=== PATIENT | female | born 1995 | race Caucasian/White ===

== ENCOUNTER 2019-11-12 06:54 | Inpatient (IN) | payer OTHER ==
[2019-11-12] VITALS (39 sets, daily range): BP systolic 92–163; BP diastolic 50–123; PULSE 63–587; TEMP 97.5–98.4
[~2019-11-12] VITALS: Ht 175.3 cm; Wt 107.7 kg
--- NOTE | 2019-11-12 07:00 | NUR ---
Patient arrives ambulatory with spouse for scheduled induction of labor. Patient denies contractions, ROM or vaginal bleeding and reports normal movement. Patient changes into gown, EFM explained and placed. VS obtained. Plan of care for induction reviewed, patient agrees and denies questions. 0715- IV started in RH, labs obtained and LR infusing per protocol. Assessment completed, consents explained and signed. Patient denies questions. 0740- Reactive Category 1 FHR strip obtained. Discussing with patient Pitocin administration, patient denies questions. Pitocin started at 2 mU per protocol and order.
[2019-11-12] MEDS ORDERED: PRENATAL (07:24)
[2019-11-12] MEDS ORDERED: ZOVIRAX400 MG PO (07:25)
--- NOTE | 2019-11-12 08:00 | NUR ---
Dr. Singh on unit, reviews FHR strip since admission. 0805- Physician at bedside. Vertex presentation confirmed via bedside sono by physician. Discussing AROM, patient agrees. 0808- SVE per provider . AROM by Dr. Singh for moderate amount of clear fluid. Pericare given and patient repositioned WL. Updated on plan of care. 0815- Physician reviews FHR strip. Orders to continue Pitocin induction.
[2019-11-12 08:08] LABS: BASO % 0.3 % (0.0-2.0); EOS # 0.1 (0.0-0.7); EOS % 1.1 % (0-4.0); GRAN # 6.3 (1.4-6.5); GRAN % 68.7 % (42.2-75.2); LYMPH # 1.9 (1.2-3.4); LYMPH % 20.5 % (20.0-51.0); MEAN CELL VOLUME 93 fl (80.0-100.0); MEAN CORPUSCULAR HEMOGLOBIN 31 pg (27.0-31.0); MEAN CORPUSCULAR HGB CONC 33 g/dl (33.0-37.0); MEAN PLATELET VOLUME 11.3 fl (7.4-10.4); MONO # 0.7 (0.1-0.6); MONO % 7.8 % (1.7-9.3); PLATELET COUNT 227 K/mm3 (130-400); RED BLOOD COUNT 3.61 M/mm3 (4.10-5.30); REDCELL DISTRIBUTION WIDTH-CV 13.5 % (11.5-14.5)
[2019-11-12 08:22] LABS: HEMATOCRIT 33.4 % (37.0-47.0)
[2019-11-12 08:26] LABS: TRICYCLIC ANTIDEPRESS URINE NEGATIVE
--- NOTE | 2019-11-12 12:40 | NUR ---
Dr. Singh at bedside. Reviews FHR strip. SVE per provider /3. Orders to hold Pitocin at 20mU unless contractions space out. No further orders at this time.
--- NOTE | 2019-11-12 14:00 | NUR ---
1400- Patient very uncomfortable with contractions and requesting epidural. Daniella Desai CRNA notified and LR bolus infusing. 1410- Patient sitting on edge of bed for epidural placement. Daniella Desai CRNA at bedside. 1422- Epidural test dose by Daniella Desai CRNA, patient tolerates well, no adverse reactions noted. See anesthesia record. 1428- Patient repositioned WL following epidural. Updated on plan of care and safety.
--- NOTE | 2019-11-12 15:45 | NUR ---
Recurrent variable decelerations noted, SVE AL/+1. Dr. Singh notified and requested on unit. In transit. RN remains at bedside. Patient to LL position.
--- NOTE | 2019-11-12 15:55 | NUR ---
1555- Dr. Singh at bedside. SVE per provider 2. Patient does not report urge to push, patient's on his way back to hospital. Decision made to wait to begin pushing until arrives unless patient feels need. Physician remains on unit, RN remains at bedside. Mejia catheter removed, pericare given.
--- NOTE | 2019-11-12 16:18 | NUR ---
1618- Patient's at bedside. Physician at bedside, nursery RN to bedside. Patient assisted to footplates, periprep completed. 1625- Patient begins pushing with contractions. Moves vertex well. 1627- of viable female infant attended by Dr. Singh. Infant to mother's abdomen, then to warmer for assessment. Care of to Antonette Orozco RN, Apgars 8/9/9. 1630- Spontaneous delivery of placenta. Pitocin bolus started at 333ml/hr/protocol. Fundal massage by RN, firm and one below umbilicus. Vaginal bleeding WNL. Perienum intact. Pericare given and ice pack applied. Patient updated on plan of care, safety reviewed. Call light in reach.
[2019-11-13 01:50] VITALS: BP 106/76; PULSE 79; TEMP 98.2
[2019-11-13 04:15] VITALS: BP 100/67; PULSE 80; TEMP 97.9
[2019-11-13 07:24] LABS: HEMOGLOBIN 11.1 g/dl (12.5-16.0)
[2019-11-13 07:25] LABS: HEMATOCRIT 33.7 % (37.0-47.0)
[2019-11-13 07:30] VITALS: BP 98/51; PULSE 80; TEMP 98.5
[2019-11-13] MEDS ORDERED: PERCOCET 325 MG1 TA2 PO (08:30)
[2019-11-13] MEDS ORDERED: IBU600 MG PO (08:30)
[2019-11-13 16:48] VITALS: BP 123/75; PULSE 78; TEMP 97.8
--- NOTE | 2019-11-16 10:08 | NUR ---
Patient's infant's cord blood was negative for illegal drugs in system.
== END 2019-11-13 19:00 | disposition home or self-care (01) | DRG 806 ==
LOC: OB 06:54 → LDR 06:54 → OB 10:04
PROVIDERS: ADMIT Obstetrics & Gynecology
PROC: 10E0XZZ Delivery of Products of Conception, External Approach (ICD-10-PCS; principal; 2019-11-12)
PROC: 10907ZC Drainage of Amniotic Fluid, Therapeutic from Products of Conception, Via Natural or Artificial Opening (ICD-10-PCS; 2019-11-12)
DX: O99.02 Anemia complicating childbirth (principal); O98.52 Other viral diseases complicating childbirth; Z37.0 Single live birth; O99.334 Smoking (tobacco) complicating childbirth; F17.210 Nicotine dependence, cigarettes, uncomplicated; D64.9 Anemia, unspecified; Z3A.39 39 weeks gestation of pregnancy; O69.81X0 Labor and delivery complicated by cord around neck, without compression, not applicable or unspecified; Z87.440 Personal history of urinary (tract) infections; B00.9 Herpesviral infection, unspecified
CPT/HCPCS: J2590; J7120